=== PATIENT | female | born 1980 | race Caucasian/White ===

== ENCOUNTER 2022-06-14 10:43 | Emergency (ER) | payer SELFPAY ==
[~2022-06-14] VITALS: Ht 152.4 cm; Wt 43.1 kg
[~2022-06-14 10:43] MED LIST: AMOXICILLIN500 MG PO; DIFLUCAN150 MG PO; NKHM; TRAMADOL HCL50 MG PO; ZOFRAN ODT4 MG SL
== END 2022-06-14 11:58 | disposition home or self-care (01) ==
LOC: ED 10:43
DX: S90.31XA Contusion of right foot, initial encounter (principal); S90.121A Contusion of right lesser toe(s) without damage to nail, initial encounter; Z79.2 Long term (current) use of antibiotics; Z98.890 Other specified postprocedural states; W20.8XXA Other cause of strike by thrown, projected or falling object, initial encounter; Y93.89 Activity, other specified; Y92.89 Other specified places as the place of occurrence of the external cause; Y99.8 Other external cause status